=== PATIENT | male | born 1980 | race American Indian/Alaskan Native ===

== ENCOUNTER 2024-07-06 12:51 | Emergency (ER) | payer SELFPAY | END 2024-07-06 14:51 | LOC: JP.ED 12:51 | DX: S86.911A Strain of unspecified muscle(s) and tendon(s) at lower leg level, right leg, initial encounter (principal); Z79.899 Other long term (current) drug therapy; Z79.4 Long term (current) use of insulin; X58.XXXA Exposure to other specified factors, initial encounter | CPT/HCPCS: 73562-26-RT; 73562-RT; 99283 ==